=== PATIENT | female | born 1965 | race Two or more races ===

== ENCOUNTER → 2017-05-23 | Emergency (ER) | payer OTHER ==
[~2017-05-23] VITALS: Ht 154.9 cm; Wt 68.0 kg
[~2017-05-23] MED LIST: ADULT ASPIRIN81 MG; AMBIEN10 MG PO; ASA81 MG; AVALIDE 150-12.1 TA1; AVAPRO150 MG PO; AVAPRO300 MG; FOLIC ACID1 MG; LUTEIN20 MG; MYFORTIC180 MG; NEURONTIN600 MG; PANADOL EXTRA500 MG; PREDNISOLONE5 MG; PRILOSEC20 MG; PROGRAF1 MG; REGLAN 10ML5 MG/ML; REGLAN5 MG/5 ML; REGLAN5 MG/ML; SEPTRA 80/400 T1 TAB; TOPROL XL25 MG; VITAMIN C1000 M1 PO; VITAMIN D5000 UNIT PO
== END | disposition home or self-care (01) ==
LOC: ER 11:12
DX: R10.84 Generalized abdominal pain (principal)

== ENCOUNTER 2017-06-06 11:29 | Outpatient (CLI) | payer OTHER | END 2017-06-06 15:08 | disposition home or self-care (01) | LOC: RAD 11:29 | DX: K31.84 Gastroparesis (principal); K29.00 Acute gastritis without bleeding; K21.9 Gastro-esophageal reflux disease without esophagitis ==

== ENCOUNTER 2017-06-16 07:56 | Day surgery (SDC) | payer OTHER | END 2017-06-16 13:40 | disposition home or self-care (01) | LOC: AMB-ENDOS 07:56 | DX: K29.00 Acute gastritis without bleeding (principal); K44.9 Diaphragmatic hernia without obstruction or gangrene ==

== ENCOUNTER 2017-11-28 19:06 | Emergency (ER) | payer OTHER ==
[~2017-11-28] VITALS: Ht 160 cm; Wt 89.8 kg
== END 2017-11-28 21:50 | disposition home or self-care (01) ==
LOC: ER 19:06
DX: M75.51 Bursitis of right shoulder (principal); M54.2 Cervicalgia; M51.34 Other intervertebral disc degeneration, thoracic region

== ENCOUNTER 2018-02-09 12:59 | Outpatient (CLI) | payer OTHER | END 2018-02-09 13:02 | disposition home or self-care (01) | LOC: RAD 12:59 | DX: J45.20 Mild intermittent asthma, uncomplicated (principal); R06.9 Unspecified abnormalities of breathing ==

== ENCOUNTER 2018-02-12 15:16 | Emergency (ER) | payer OTHER ==
[~2018-02-12] VITALS: Ht 160 cm; Wt 91.6 kg
== END 2018-02-12 21:32 | disposition home or self-care (01) ==
LOC: ER 15:16
DX: R06.02 Shortness of breath (principal)

== ENCOUNTER → 2018-03-05 | Outpatient (CLI) | payer OTHER | END | disposition home or self-care (01) | LOC: MRI 03-01 14:15 | DX: R51 Headache (principal) | CPT/HCPCS: 70551 ==

== ENCOUNTER 2018-05-24 14:13 | Outpatient (CLI) | payer OTHER | END 2018-05-24 14:22 | disposition home or self-care (01) | LOC: RAD 501 14:13 | DX: H43.21 Crystalline deposits in vitreous body, right eye (principal); Z01.810 Encounter for preprocedural cardiovascular examination ==

== ENCOUNTER 2018-06-27 11:00 | Outpatient (CLI) | payer OTHER | END 2018-06-27 11:02 | disposition home or self-care (01) | LOC: SONOGRAMA 11:00 | DX: E04.0 Nontoxic diffuse goiter (principal) ==

== ENCOUNTER 2018-08-02 08:59 | Outpatient (CLI) | payer OTHER | END 2018-08-02 09:39 | disposition home or self-care (01) | LOC: RAD 501 08:59 | DX: M25.562 Pain in left knee (principal); M70.51 Other bursitis of knee, right knee; E27.1 Primary adrenocortical insufficiency; Z94.83 Pancreas transplant status; Z94.0 Kidney transplant status; M79.7 Fibromyalgia; E10.43 Type 1 diabetes mellitus with diabetic autonomic (poly)neuropathy; E03.8 Other specified hypothyroidism; E66.8 Other obesity ==

== ENCOUNTER 2018-08-24 10:00 | Outpatient (CLI) | payer OTHER | END 2018-08-24 12:15 | disposition home or self-care (01) | LOC: MRI 10:00 | DX: G93.2 Benign intracranial hypertension (principal) | CPT/HCPCS: 70551 ==

== ENCOUNTER 2018-09-25 13:53 | Outpatient (CLI) | payer OTHER | END 2018-09-25 13:59 | disposition home or self-care (01) | LOC: MAMO-SONO 13:53 | DX: N60.11 Diffuse cystic mastopathy of right breast (principal); N60.12 Diffuse cystic mastopathy of left breast; Z12.31 Encounter for screening mammogram for malignant neoplasm of breast; Z87.898 Personal history of other specified conditions ==

== ENCOUNTER 2019-05-29 11:34 | Outpatient (CLI) | payer OTHER | END 2019-05-29 11:42 | disposition home or self-care (01) | LOC: RAD 11:34 | DX: M25.572 Pain in left ankle and joints of left foot (principal) ==

== ENCOUNTER 2019-12-17 14:14 | Outpatient (CLI) | payer OTHER | END 2019-12-17 14:20 | disposition home or self-care (01) | LOC: NUCLEAR 14:14 | PROVIDERS: ATTEND Internal Medicine | DX: G89.4 Chronic pain syndrome (principal); M81.8 Other osteoporosis without current pathological fracture; M85.80 Other specified disorders of bone density and structure, unspecified site; M70.51 Other bursitis of knee, right knee; E27.1 Primary adrenocortical insufficiency; K59.01 Slow transit constipation; Z94.83 Pancreas transplant status; Z94.0 Kidney transplant status; M79.7 Fibromyalgia; E10.43 Type 1 diabetes mellitus with diabetic autonomic (poly)neuropathy; E03.8 Other specified hypothyroidism; E66.8 Other obesity; K29.60 Other gastritis without bleeding ==

== ENCOUNTER 2020-01-01 08:04 | Outpatient (CLI) | payer OTHER | END 2020-01-01 08:19 | disposition home or self-care (01) | LOC: NUCLEAR 08:04 | PROVIDERS: ATTEND Internal Medicine Endocrinology, Diabetes & Metabolism | DX: S32.049A Unspecified fracture of fourth lumbar vertebra, initial encounter for closed fracture (principal); S32.039A Unspecified fracture of third lumbar vertebra, initial encounter for closed fracture; M81.0 Age-related osteoporosis without current pathological fracture; E11.9 Type 2 diabetes mellitus without complications; I10 Essential (primary) hypertension; M47.10 Other spondylosis with myelopathy, site unspecified; M48.10 Ankylosing hyperostosis [Forestier], site unspecified | CPT/HCPCS: 78315; A9503 ==

== ENCOUNTER 2021-03-23 08:43 | Outpatient (CLI) | payer OTHER | END 2021-03-23 08:49 | disposition home or self-care (01) | LOC: RX STUDY 08:43 | PROVIDERS: ATTEND Otolaryngology Otology & Neurotology | DX: K22.89 Other specified disease of esophagus (principal) ==

== ENCOUNTER 2021-08-02 11:52 | Outpatient (CLI) | payer OTHER | END 2021-08-02 12:09 | disposition home or self-care (01) | LOC: RAD 11:52 | PROVIDERS: ATTEND Internal Medicine Endocrinology, Diabetes & Metabolism | DX: M15.0 Primary generalized (osteo)arthritis (principal); M19.041 Primary osteoarthritis, right hand; M19.042 Primary osteoarthritis, left hand; M25.552 Pain in left hip; M54.59 Other low back pain; E04.9 Nontoxic goiter, unspecified ==

== ENCOUNTER 2022-08-10 14:35 | Outpatient (CLI) | payer OTHER | END 2022-08-10 14:45 | disposition home or self-care (01) | LOC: RAD 14:35 | PROVIDERS: ATTEND Orthopaedic Surgery | DX: M79.641 Pain in right hand (principal); M79.631 Pain in right forearm; M25.521 Pain in right elbow ==

== ENCOUNTER 2022-10-05 13:13 | Outpatient (CLI) | payer OTHER | END 2022-10-05 13:21 | disposition home or self-care (01) | LOC: RAD 13:13 | PROVIDERS: ATTEND Orthopaedic Surgery | DX: M79.641 Pain in right hand (principal); M25.531 Pain in right wrist; M25.561 Pain in right knee; M25.562 Pain in left knee ==

== ENCOUNTER 2022-12-12 07:20 | Outpatient (CLI) | payer OTHER | END 2022-12-12 07:30 | disposition home or self-care (01) | LOC: LAB 07:20 | PROVIDERS: ATTEND Orthopaedic Surgery | DX: E88.9 Metabolic disorder, unspecified (principal); D64.89 Other specified anemias; D68.8 Other specified coagulation defects; N39.0 Urinary tract infection, site not specified; Z22.322 Carrier or suspected carrier of Methicillin resistant Staphylococcus aureus; Z76.89 Persons encountering health services in other specified circumstances; I10 Essential (primary) hypertension; I49.9 Cardiac arrhythmia, unspecified ==

== ENCOUNTER 2023-08-23 05:03 | Day surgery (SDC) | payer OTHER ==
[~2023-08-23 05:03] MED LIST changes: +AVAPRO75 MG PO; +CARAFATE1 GM PO; +CORTEF20 MG PO; +FOLIC ACID0.8 M1 PO; +GLIMEPIRIDE4 MG; +GRALISE600 MG PO; +JARDIANCE10 MG PO; +LEVO-T50 MCG PO; +LIPITOR80 MG PO; +NEXIUM40 M1; +PEPCID AC20 MG PO; +PROGRAF0.2 MG PO; +REGLAN5 MG/5 ML PO; +REMERON15 M1 PO; +TOPROL XL25 M1 PO; +XANAX0.25 MG PO
[2023-08-23] MEDS ORDERED: CLINDAMYCIN PHOSPHATE 150 MG/ML (900mg) ONE (06:31)
[2023-08-23] MEDS ORDERED: TRIAMCINOLONE ACETONIDE 40 MG/ML VIAL ONE (07:13)
[2023-08-23] MEDS ORDERED: BACITRACIN 28.35 GM OINT.TUBE TOP ONE ×2 (07:13→08:15)
[2023-08-23] MEDS ORDERED: LIDOCAINE HCL 1% 20ML VIAL IJ ONE ×2 (07:49→08:15)
[2023-08-23] MEDS ORDERED: ISOPROPYL ALCOHOL 30 ML OUNCE TOP ONE (08:15)
[2023-08-23] MEDS ORDERED: BUPIVACAINE HCL 30 ML VIAL IJ ONE (08:15)
[2023-08-23] MEDS ORDERED: CLINDAMYCIN PHOSPHATE 150 MG/ML (900mg) IV ONE (08:15)
== END 2023-08-23 09:50 | disposition home or self-care (01) ==
LOC: CIR.AMB 05:03
PROVIDERS: ATTEND Surgery Surgery of the Hand
DX: M65.841 Other synovitis and tenosynovitis, right hand (principal); Z88.0 Allergy status to penicillin; Z91.041 Radiographic dye allergy status

== ENCOUNTER 2024-10-11 10:43 | Outpatient (CLI) | payer OTHER | END 2024-10-11 10:44 | disposition home or self-care (01) | LOC: NUCLEAR 10:43 | PROVIDERS: ATTEND Internal Medicine Rheumatology | DX: M81.0 Age-related osteoporosis without current pathological fracture (principal) ==